=== PATIENT | male | born 1965 | race Caucasian/White ===

== ENCOUNTER 2022-04-19 22:59 | Inpatient (IN) ==
[2022-04-19] MEDS ORDERED: Ondansetron 4 mg VIAL 2 MG/ML 2 ml VIAL IV PRN (23:26)
[2022-04-19] MEDS ORDERED: Heparin 5000 UNITS/ML 1 mL VIAL SUBCUT ONE (23:28)
[2022-04-19] MEDS ORDERED: NS 0.9% 1000 ml BAG 1,000 ML IV SCH (23:30)
[2022-04-20] MEDS: Acetaminophen IV 1 GM/100ML 1,000 MG/100 ML BAG IV SCH ×4 (00:22→21:36)
[2022-04-20 06:00] LABS: ABS Eosinophils 0.1 10^3/ul (0-0.6); ABS Lymphocytes 1.2 10^3/ul (1.0-4.8); ABS Monocytes 0.5 10^3/ul (0-0.8); Eosinophil % 1.5 %; Hematocrit 37 % (42-52); Hemoglobin 12.4 g/dL (14.0-18.0); Lymphocyte % 17.2 %; Mean Corpuscular HGB Conc 34 g/dL (31-36); Mean Corpuscular Hemoglobin 31 pg (27-31); Mean Corpuscular Volume 92 fL (80-94); Mean Platelet Volume 7.4 fL (7.4-10.4); Nucleated Red Blood Cells % 0.1; Platelet Count 214 10^3/uL (150-450); Red Blood Count 3.98 10^6 /uL (4.18-5.48); Red Cell Distribution Width 13 % (10-15); White Blood Count 6.8 10^3/uL (3.5-10.8)
[2022-04-20 06:21] LABS: Calcium 8.6 mg/dL (8.6-10.3); Potassium 4.4 mmol/L (3.5-5.0)
[2022-04-20 06:27] LABS: eGFR CKD-EPI 95.2 (>60)
[2022-04-20] MEDS ORDERED: Regadenoson 0.4 MG/5 ML SYRINGE ONE (09:05)
[2022-04-20] MEDS ORDERED: Aminophylline 25 MG/ML VIAL ONE (09:16)
[2022-04-20] MEDS ORDERED: Ondansetron 4 mg VIAL 2 MG/ML 2 ml VIAL ONE (13:34)
[2022-04-20] MEDS ORDERED: Lidocaine 2% PF 5 ML VIAL ONE (13:34)
[2022-04-20] MEDS ORDERED: Propofol 10 MG/ML 20 ML BTL ONE (13:34)
[2022-04-20] MEDS ORDERED: Rocuronium 50 mg VIAL 10 mg/ml 5 ml VIAL (50 mg) ONE (13:34)
[2022-04-20] MEDS ORDERED: Dexamethasone IV 4 MG/ML VIAL 1 ml VIAL ONE (13:34)
[2022-04-20] MEDS ORDERED: ceFAZolin 2 GM PREMIX 2 GM/50 ML BAG ONE (13:40)
[2022-04-20] MEDS ORDERED: Propofol 10 mg/ml 100 ML BTL 1,000 MG/100 ML BTL ONE (15:50)
[2022-04-20] MEDS ORDERED: Phenylephrine IV 10 MG/ML 1 ml VIAL ONE (15:51)
[2022-04-20] MEDS ORDERED: Bupivacaine 0.5% SDV PF 30ML VIAL ONE ×2 (15:55→16:43)
[2022-04-20] MEDS ORDERED: Midazolam 2 mg/2 ml VIAL 1 mg/ml 2 ml VIAL (2 mg) ONE (15:57)
[2022-04-20] MEDS ORDERED: fentaNYL 100 mcg/2 ml 50 MCG/ML VIAL ONE (16:43)
[2022-04-20] MEDS ORDERED: Ondansetron 4 mg VIAL 2 MG/ML 2 ml VIAL IV PRN (18:02)
[2022-04-20] MEDS ORDERED: Ondansetron ODT 4 mg TAB 4 MG TAB PO PRN (18:02)
[2022-04-20] MEDS ORDERED: Naloxone 0.4 mg VIAL 0.4 mg/ml 1 ml VIAL IV PRN (18:02)
[2022-04-20] MEDS ORDERED: oxyCODONE/Acetamin 5/325 mg TAB PO PRN (22:35)
[2022-04-21] MEDS: ceFAZolin 1 GM in Dextrose 1 GM/50 ML BAG IVPB SCH ×2 (01:46→09:38)
[2022-04-21] MEDS: Acetaminophen IV 1 GM/100ML 1,000 MG/100 ML BAG IV SCH ×2 (01:46→02:34)
[2022-04-21 07:56] VITALS: BP 131/75
[2022-04-21 08:40] LABS: ABS Eosinophils 0.2 10^3/ul (0-0.6); ABS Lymphocytes 0.8 10^3/ul (1.0-4.8); ABS Monocytes 0.7 10^3/ul (0-0.8); Eosinophil % 1.7 %; Hematocrit 38 % (42-52); Hemoglobin 12.7 g/dL (14.0-18.0); Mean Corpuscular HGB Conc 34 g/dL (31-36); Mean Corpuscular Hemoglobin 31 pg (27-31); Mean Corpuscular Volume 92 fL (80-94); Mean Platelet Volume 7.2 fL (7.4-10.4); Platelet Count 226 10^3/uL (150-450); Red Blood Count 4.14 10^6 /uL (4.18-5.48); Red Cell Distribution Width 13 % (10-15); White Blood Count 11.8 10^3/uL (3.5-10.8)
[2022-04-21] MEDS ORDERED: Enoxaparin 40 MG/0.4 ML SYR SUBCUT SCH (09:00)
[2022-04-21] MEDS ORDERED: Acetaminophen IV 1 GM/100ML 1,000 MG/100 ML BAG IV SCH (10:30)
== END 2022-04-21 12:50 | disposition home or self-care (01) | DRG 308 ==
LOC: SSU 22:59 → SUATTDRO 23:26
PROVIDERS: ADMIT Internal Medicine; ATTEND Student in an Organized Health Care Education/Training Program